=== PATIENT | male | born 1955 | race Caucasian/White ===

== ENCOUNTER 2020-08-20 08:11 | Outpatient (CLI) | payer MEDICARE | END 2020-08-20 23:59 | disposition home or self-care (01) | LOC: ROC 08:11 | PROVIDERS: ATTEND Radiology Radiation Oncology | DX: C61 Malignant neoplasm of prostate (principal) | CPT/HCPCS: G0463 ==

== ENCOUNTER 2020-08-25 07:07 | Outpatient (CLI) | payer MEDICARE ==
[2020-08-25] MEDS ORDERED: FENTANYL PF 100 MCG/2ML IVPush ONE (07:30)
[2020-08-25] MEDS ORDERED: LIDOCAINE/PF 1%, 30ML IV ONE (07:30)
[2020-08-25] MEDS ORDERED: MIDAZOLAM 1 MG/ML, 5ML IVPush ONE (07:30)
== END 2020-08-25 23:59 | disposition home or self-care (01) ==
LOC: ROC 07:07
PROVIDERS: ATTEND Radiology Radiation Oncology
DX: C61 Malignant neoplasm of prostate (principal)
CPT/HCPCS: 55876; 76942; 77332; 99156; A4648; J2250; J3010